=== PATIENT | male | born 1965 | race Caucasian/White ===

== ENCOUNTER 2017-09-11 11:07 | Observation (INO) | payer OTHER ==
[~2017-09-11] VITALS: Ht 162.6 cm; Wt 78.6 kg
[2017-09-11] MEDS ORDERED: SODIUM CHLORIDE 0.9% 1,000 ML IV ONE (12:06)
[2017-09-11] MEDS ORDERED: ASPIRIN 81 MG TABLET CHEW ONE (12:18)
[2017-09-11 12:23] LABS: BASOPHILS # (AUTO) 0.01 x10^3/uL (0-0.1); BASOPHILS % (AUTO) 0 % (0-1); EOSINOPHILS % (AUTO) 2 % (1-7); LYMPHOCYTES # (AUTO) 0.93 x10^3/uL (1-3.4); LYMPHOCYTES % (AUTO) 15 % (22-44); MD NO; MEAN CORPUSCULAR HEMOGLOBIN 33.2 pg (27.5-34.5); MEAN CORPUSCULAR HGB CONC 34.8 g/dL (33.2-36.2); MEAN CORPUSCULAR VOLUME 95.6 fL (81-97); MEAN PLATELET VOLUME 8.4 fL (7.4-10.4); MONOCYTES # (AUTO) 0.42 x10^3/uL (0.2-0.8); MONOCYTES % (AUTO) 7 % (2-9); NEUTROPHILS # (AUTO) 4.71 x10^3/uL (1.8-6.8); NEUTROPHILS % (AUTO) 76 % (42-75); PLATELET COUNT 196 x10^3/uL (130-400); RED BLOOD COUNT 4.51 x10^6/uL (4.38-5.82); RED CELL DISTRIBUTION WIDTH 12.5 % (9.4-14.8)
[2017-09-11] MEDS ORDERED: SODIUM CHLORIDE FLUSH 10ML SYR IVF ONE (12:30)
[2017-09-11] MEDS ORDERED: ASPIRIN 81 MG TABLET CHEW PO ONE (12:30)
[2017-09-11 12:41] LABS: ALANINE AMINOTRANSFERASE 30 U/L (12-78); ALBUMIN 3.9 g/dL (3.4-5.0); ANION GAP 8 mmol/L (5-15); CALCIUM 7.9 mg/dL (8.5-10.1); CHLORIDE 104 mmol/L (98-107)
[2017-09-11 12:46] LABS: ALKALINE PHOSPHATASE 42 U/L (45-117); CREATININE 0.76 mg/dL (0.7-1.3); TOTAL PROTEIN 6.9 g/dL (6.4-8.2); TROPONIN I < 0.015 ng/mL (0.000-0.045)
[2017-09-11] MEDS ORDERED: SODIUM CHLORIDE FLUSH 10ML SYR IVF PRN (13:30)
[2017-09-11] MEDS ORDERED: NITROGLYCERIN 0.4 MG BOTTLE (25 TABS) SL PRN (14:30)
[2017-09-11] MEDS ORDERED: DOCUSATE 100 MG CAPSULE PO PRN (14:30)
[2017-09-11] MEDS ORDERED: LABETALOL 5MG/ML, 20ML IVPush PRN (14:30)
[2017-09-11] MEDS ORDERED: BISACODYL 10 MG SUPP PR PRN (14:30)
[2017-09-11] MEDS ORDERED: ONDANSETRON 2MG/ML, 2ML IVPush PRN (14:30)
[2017-09-11] MEDS ORDERED: ACETAMINOPHEN 325 MG TABLET PO PRN (14:30)
[2017-09-11] MEDS ORDERED: POLYETHYLENE GLYCOL 17 GM PACKET PO PRN (14:30)
[2017-09-11] MEDS ORDERED: morphine SULFATE 10 MG/ML, 1ML IVPush PRN (14:30)
[2017-09-11] MEDS ORDERED: DOXA2TAB9 PO (14:32)
[2017-09-11] MEDS ORDERED: ASPI-496 PO (14:32)
[2017-09-11] MEDS ORDERED: SPIR25TA3 PO (14:32)
[2017-09-11] MEDS ORDERED: OMEP-110 PO (14:32)
[2017-09-11] MEDS ORDERED: LOSA100T6 PO (14:32)
[2017-09-11] MEDS ORDERED: ENOXAPARIN 40 MG/0.4 ML ONE (14:50)
[2017-09-11] MEDS: ENOXAPARIN 40 MG/0.4 ML SQ SCH (14:54)
[2017-09-11 17:11] VITALS: BP 123/79
[2017-09-11 17:17] LABS: TROPONIN I < 0.015 ng/mL (0.000-0.045)
[2017-09-11 20:51] VITALS: BP 124/75
[2017-09-11] MEDS: SODIUM CHLORIDE FLUSH 10ML SYR IVF SCH (20:56)
[2017-09-11] MEDS ORDERED: DOXAZOSIN 2MG TABLET PO SCH (21:00)
[2017-09-12 00:04] LABS: TROPONIN I < 0.015 ng/mL (0.000-0.045)
[2017-09-12 03:23] VITALS: BP 120/77
[2017-09-12 05:40] LABS: CHOL/HDL RATIO 3.7; LDL/HDL RATIO 2.2 (0.5-3.0)
[2017-09-12] MEDS ORDERED: ASPIRIN 325 MG TABLET EC PO SCH (06:00)
[2017-09-12 07:26] VITALS: BP 134/86
[2017-09-12] MEDS: SODIUM CHLORIDE FLUSH 10ML SYR IVF SCH (08:03)
[2017-09-12] MEDS ORDERED: REGADENOSON 0.4 MG/5 ML SYRINGE ONE (08:52)
[2017-09-12 12:40] VITALS: BP 144/84
[2017-09-12] MEDS: ENOXAPARIN 40 MG/0.4 ML SQ SCH (14:30)
== END 2017-09-12 16:40 | disposition home or self-care (01) ==
LOC: ED 13:00 → EDIP 13:26 → INTOOBSV 13:26 → 5SO 16:10
PROVIDERS: ADMIT Internal Medicine; ATTEND Internal Medicine
DX: R07.9 Chest pain, unspecified (principal); I11.0 Hypertensive heart disease with heart failure; I50.9 Heart failure, unspecified; F10.10 Alcohol abuse, uncomplicated; K21.9 Gastro-esophageal reflux disease without esophagitis; Z82.49 Family history of ischemic heart disease and other diseases of the circulatory system
CPT/HCPCS: 36415; 71045; 78452; 80053; 80061; 84484; 85025; 85379; 93005; 93017; 96360; 96361; 96372; 99285; A9502; C9898; G0378; J1650; J2785; J7030